=== PATIENT | male | born 1970 | race Caucasian/White ===

== ENCOUNTER 2020-01-24 12:42 | Emergency (ER) | payer BC, OTHER ==
[~2020-01-24] VITALS: Ht 188 cm; Wt 77.1 kg
[2020-01-24 12:44] VITALS: BP 143/96
== END 2020-01-24 13:40 | disposition home or self-care (01) ==
LOC: ER 12:42
DX: S61.012A Laceration without foreign body of left thumb without damage to nail, initial encounter (principal); Z23 Encounter for immunization; W26.8XXA Contact with other sharp object(s), not elsewhere classified, initial encounter; Y93.89 Activity, other specified; Y92.89 Other specified places as the place of occurrence of the external cause; Y99.8 Other external cause status